=== PATIENT | female | born 1960 ===

== ENCOUNTER 2017-11-05 07:36 | Day surgery (SDC) | payer BC ==
[~2017-11-05] VITALS: Ht 172.7 cm; Wt 136.5 kg
[~2017-11-05 07:36] MED LIST: ALBU90OI INH; ALBU90OI61; CEPH500 PO; CHOL10002 PO; CLAR500; Cleocin HCl150 MG PO; DICMIS50EC; FLUSAL2505 IH; GLIP10 PO; HYDACE5 PO; INSUASPI; INSUASPI SC; LEVFLO500 PO; METF500 PO; METF500C; MULVITMIND PO; NAPR220; NEOCOLOTSU OT; PIOG15 PO; PRED20 PO; RXHYDACE PO; SACC250C PO; SULTRISS PO; TRAM50 PO
[2017-11-05] MEDS ORDERED: GLIP5ER PO (08:53)
[2017-11-05] MEDS ORDERED: METF500 PO (08:53)
[2017-11-05] MEDS ORDERED: MELO7.5 PO (08:53)
== END 2017-11-05 13:05 | disposition home or self-care (01) ==
LOC: ORSCSDS 07:36
PROVIDERS: Podiatrist Foot & Ankle Surgery
PROC: 0LQP0ZZ Repair Left Lower Leg Tendon, Open Approach (ICD-10-PCS; principal; 2017-11-05 09:00)
PROC: 0QBM0ZZ Excision of Left Tarsal, Open Approach (ICD-10-PCS; principal; 2017-11-05 09:00)
DX: M77.32 Calcaneal spur, left foot (principal); M66.872 Spontaneous rupture of other tendons, left ankle and foot; E11.9 Type 2 diabetes mellitus without complications; I10 Essential (primary) hypertension; K21.9 Gastro-esophageal reflux disease without esophagitis; E66.01 Morbid (severe) obesity due to excess calories; Z68.42 Body mass index [BMI] 45.0-49.9, adult; Z87.891 Personal history of nicotine dependence; Z79.899 Other long term (current) drug therapy
CPT/HCPCS: 82947; C1713; J0690; J1100; J2370; J2405; J2765; J7120

== ENCOUNTER → 2024-05-27 | Outpatient (CLI) | payer OTHER ==
[~2024-05-27] MED LIST changes: +Ascorbic Acid500 MG PO; +B Complex-Foli1 EACH PO; +GLIP5ER PO; +MELO7.5 PO; +THERA1 EACH PO
[2024-05-27 15:33] LABS: BASOPHILS ABSOLUTE AUTO 0.14 K/mm3 (0.00-0.23); BASOPHILS PERCENT AUTO 2 % (0-2); EOSINOPHILS ABSOLUTE AUTO 0.32 K/mm3 (0.00-0.68); EOSINOPHILS PERCENT AUTO 4 % (0-6); Hematocrit 37.4 % (33.0-51.0); Hemoglobin 11.7 g/dL (11.5-16.0); IMMATURE GRAN ABSOLUTE AUTO 0.22 K/mm3 (0.00-0.10); IMMATURE GRAN PERCENT AUTO 2 % (0-1); LYMPHOCYTES ABSOLUTE AUTO 1.43 K/mm3 (0.84-5.20); LYMPHOCYTES PERCENT AUTO 16 % (21-46); MONOCYTES ABSOLUTE AUTO 0.71 K/mm3 (0.16-1.47); MONOCYTES PERCENT AUTO 8 % (4-13); Mean Corpuscular HGB 27.7 pg (26.0-34.0); Mean Corpuscular HGB Conc 31.3 g/dL (31.5-36.5); Mean Corpuscular Volume 89 fL (80-100); Mean Platelet Volume 9.8 fL (9.1-12.4); NEUTROPHILS PERCENT AUTO 69 % (41-73); Platelet Count 447 K/mm3 (150-400); RDW Coefficient Variation 13.4 % (11.7-14.2); RDW Standard Deviation 43.4 fL (35.1-46.3); Red Blood Cell Count 4.22 M/mm3 (3.80-5.20); White Blood Cell Count 9.12 K/mm3 (4.00-11.30)
[2024-05-27 16:06] LABS: Microalb/Creat Ratio UR, Rand 504.505 mg/g (0.000-30.000)
== END ==
LOC: LAB SHORT 13:53 → LAB 13:53
PROVIDERS: Nurse Practitioner Family
DX: E11.9 Type 2 diabetes mellitus without complications (principal)
CPT/HCPCS: 82043; 82570; 83036; 84443; 85025

== ENCOUNTER → 2024-09-23 | Outpatient (CLI) | payer OTHER ==
[2024-09-23 14:44] LABS: Microalb/Creat Ratio UR, Rand 273.171 mg/g (0.000-30.000)
== END ==
LOC: LAB SHORT 11:24 → LAB 11:24
PROVIDERS: Nurse Practitioner Family
DX: E11.29 Type 2 diabetes mellitus with other diabetic kidney complication (principal); R80.9 Proteinuria, unspecified
CPT/HCPCS: 82043; 82570